=== PATIENT | female | born 1985 | race Hispanic/Latino ===

== ENCOUNTER 2023-11-25 09:40 | Day surgery (SDC) | payer OTHER ==
[~2023-11-25] VITALS: Ht 160 cm; Wt 69.9 kg
[~2023-11-25 09:40] MED LIST: ACYCLOVIR200 MG PO; TERBINAFINE250 M1 PO
[2023-11-25] MEDS ORDERED: LACTATED RINGER'S 1,000 ML IV ONE (09:47)
[2023-11-25] MEDS ORDERED: FAMOTIDINE 10MG/ML 2ML SDV IV ONE (09:47)
[2023-11-25 11:01] VITALS: BP 113/77
[2023-11-25] MEDS ORDERED: LIDOCAINE HCL 2% 2ML SDV IV ONE (16:28)
[2023-11-25] MEDS ORDERED: PROPOFOL 200 MG/20 ML VIAL IV ONE (16:28)
== END 2023-11-25 11:19 | disposition home or self-care (01) | DRG 392 ==
LOC: ENDO 09:40 → ORM 17:00
PROVIDERS: ATTEND Internal Medicine Gastroenterology
PROC: 0DB98ZX Excision of Duodenum, Via Natural or Artificial Opening Endoscopic, Diagnostic (ICD-10-PCS; principal; 2023-11-25)
PROC: 0DB78ZX Excision of Stomach, Pylorus, Via Natural or Artificial Opening Endoscopic, Diagnostic (ICD-10-PCS; 2023-11-25)
PROC: 0DB48ZX Excision of Esophagogastric Junction, Via Natural or Artificial Opening Endoscopic, Diagnostic (ICD-10-PCS; 2023-11-25)
DX: K29.70 Gastritis, unspecified, without bleeding (principal); B96.81 Helicobacter pylori [H. pylori] as the cause of diseases classified elsewhere; K21.9 Gastro-esophageal reflux disease without esophagitis